=== PATIENT | male | born 1975 | race Caucasian/White ===

== ENCOUNTER 2017-06-08 12:18 | Emergency (ER) | payer OTHER ==
[~2017-06-08] VITALS: Ht 182.8 cm; Wt 77.1 kg
[2017-06-08] MEDS ORDERED: ORPHENADRINE C100 M1 PO (14:31)
[2017-06-08] MEDS ORDERED: Motrin,Rufen800 MG PO (14:31)
== END 2017-06-08 14:54 | disposition home or self-care (01) ==
LOC: ED 12:18
DX: M54.2 Cervicalgia (principal); M25.512 Pain in left shoulder; M25.522 Pain in left elbow; M25.562 Pain in left knee; M54.5 Low back pain; V49.88XA Car occupant (driver) (passenger) injured in other specified transport accidents, initial encounter; Y93.89 Activity, other specified; Y92.413 State road as the place of occurrence of the external cause; Y99.9 Unspecified external cause status